=== PATIENT | female | born 1975 | race Asian ===

== ENCOUNTER → 2017-02-02 | Outpatient (CLI) | payer OTHER ==
--- NOTE | 2017-02-02 12:33 | REPMRS ---
Patient History No known family history of cancer. Retro-pectoral silicone gel implants in both breasts, 2010. denied. Digital Mammo Screening Bilat: February 02, 2017 - Exam #: [id number] Bilateral CC and MLO view(s) were taken. Technologist: Goldie Faith, Technologist No prior studies available for comparison. FINDINGS: The breast tissue is heterogeneously dense. This may lower the sensitivity of mammography. There is no evidence of cancer on this mammogram. ASSESSMENT: BI-RADS/ACR category 2 mammogram. Benign finding(s). Recommendation Routine screening mammogram of both breasts in 1 year (for women over age 40). This mammogram was interpreted with the aid of an FDA-approved computer-aided dectection system. Electronically Signed By: Husam Parikh MD 02/02/17 [id number]
== END ==
LOC: M RAD 11:12
PROVIDERS: ATTEND Family Medicine
DX: Z12.31 Encounter for screening mammogram for malignant neoplasm of breast (principal); R92.8 Other abnormal and inconclusive findings on diagnostic imaging of breast